=== PATIENT | male | born 1940 | race Caucasian/White ===

== ENCOUNTER 2018-10-14 07:12 | Emergency (ER) | payer MEDICARE ==
[2018-10-14] MEDS ORDERED: LACTATED RINGERS 1000ML 1,000 ML IV ONE ×2 (07:47→09:14)
[2018-10-14] MEDS ORDERED: LEVOFLOXACIN 500 MG TABLET ONE (07:47)
[2018-10-14] MEDS ORDERED: IPRATROPIUM/ALBUTEROL SULFATE 3 ML SOLUTION IH ONE ×3 (07:48→14:03)
[2018-10-14 08:19] LABS: BASOPHILS % (AUTO) 0.5 % (0.0-5.0); EOSINOPHILS % (AUTO) 0.1 % (0.0-8.0); LYMPHOCYTES % (AUTO) 7.2 % (21.0-51.0); MEAN CORPUSCULAR HEMOGLOBIN 31.8 pg (27.0-33.0); MEAN CORPUSCULAR HGB CONC 34.9 g/dL (32.0-36.0); MEAN CORPUSCULAR VOLUME 91.2 fL (79-99); MONOCYTES % (AUTO) 12.6 % (3.0-13.0); NEUTROPHILS % (AUTO) 79.6 % (40.0-77.0); PLATELET COUNT (AUTO) 254 K/uL (130-400); RED BLOOD CELL COUNT(AUTO) 4.38 MIL/uL (4.50-6.20); RED CELL DISTRIBUTION WIDTH 14.4 % (11.0-15.5); WHITE BLOOD COUNT (AUTO) 14.2 K/uL (4.8-10.8)
[2018-10-14 08:33] LABS: CREATININE 1.4 mg/dL (0.5-1.5); POTASSIUM 4.3 mmol/L (3.5-5.1)
[2018-10-14 08:37] LABS: ALBUMIN 3.2 g/dL (3.5-5.0); BILIRUBIN,TOTAL 0.5 mg/dL (0.2-1.0); TOTAL PROTEIN, SERUM 6.5 g/dL (6.0-8.3)
[2018-10-14 09:28] LABS: B-TYPE NATRIURETIC PEPTIDE 28 pg/mL (0-100)
[2018-10-14] MEDS ORDERED: IOHEXOL-350 75 ML VIAL IV ONE (09:44)
[2018-10-17] MEDS ORDERED: BENZ200C53 PO (16:10)
[2018-10-17] MEDS ORDERED: LEVO750T46 PO (16:10)
[2018-10-17] MEDS ORDERED: FLUT9.9S NS (16:10)
[2018-10-17] MEDS ORDERED: SULF1TAB42 PO (16:10)
[2018-10-17] MEDS ORDERED: METF-527 PO (16:10)
== END 2018-10-14 13:11 | disposition home or self-care (01) ==
LOC: EDH 07:12
DX: J20.9 Acute bronchitis, unspecified (principal); E86.9 Volume depletion, unspecified; R91.1 Solitary pulmonary nodule; R53.83 Other fatigue; R53.81 Other malaise; E11.9 Type 2 diabetes mellitus without complications; Z85.72 Personal history of non-Hodgkin lymphomas
CPT/HCPCS: 36415; 71045; 71275; 80053; 83605 ×2; 83880; 84484; 85025; 85378; 87804 ×2; 93005; 94640 ×2; 96360; 96361 ×2; 99284; J7120 ×2; Q9967

== ENCOUNTER 2018-10-17 08:26 | Inpatient (IN) | payer MEDICARE | END 2018-10-22 12:55 | disposition home or self-care (01) | LOC: EDH 08:26 → EDHIP 11:57 → 3CH 14:49 | DX: A04.72 Enterocolitis due to Clostridium difficile, not specified as recurrent (principal); R18.8 Other ascites; E87.1 Hypo-osmolality and hyponatremia; M48.061 Spinal stenosis, lumbar region without neurogenic claudication; Z85.72 Personal history of non-Hodgkin lymphomas; E87.8 Other disorders of electrolyte and fluid balance, not elsewhere classified; E86.0 Dehydration ==